=== PATIENT | male | born 1965 | race Caucasian/White ===

== ENCOUNTER 2024-09-17 16:11 | Emergency (ER) | payer OTHER, BC, SELFPAY ==
--- NOTE | ~2024-09-17 | XR_ITS ---
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 No elevation of the anterior or posterior fat pads are identified to suggest a supracondylar fracture . Overlying soft tissues are unremarkable. Bone mineralization is age-appropriate. IMPRESSION: No acute fracture or dislocation. Reviewed, dictated and finalized at location A.
--- NOTE | 2024-09-17 16:12 | ED.UPPEXIN ---
HPI - Extremity Injury (Upper) General Chief Complaint: Extremity Injury, Upper Stated Complaint: R SHOULDER/BEHIND R EAR/L ELBOW PAIN Time Seen by Provider: 09/17/24 16:12 Source: patient Mode of arrival: ambulatory Limitations: no limitations History of Present Illness HPI narrative: Randy is a 59-year-old male patient presenting to the clinic today with complaints of left elbow pain. He reports he hit his elbow on the machinery today while work. Has pain and swelling to the medial elbow. Also reporting some chronic pain to the right lateral neck radiating into the shoulder and back. States that this injury occurred about a year ago and has constantly been bothered him. He had x-rays at the time of the injury and they were negative. He has not followed up with his primary care doctor in regards to this. Related Data Home Medications ?Medication ?Instructions ?Recorded ?Confirmed ?Last Taken ?Type amlodipine 10 mg tablet mg 09/17/24 Unknown History atorvastatin 80 mg tablet mg 09/17/24 Unknown History metformin 500 mg tablet,extended mg PO 09/17/24 Unknown History release 24 hr metoprolol succinate 50 mg mg PO 09/17/24 Unknown History tablet,extended release 24 hr zolpidem 10 mg tablet mg 09/17/24 Unknown History Allergies Allergy/AdvReac Type Severity Reaction Status Date / Time No Known Allergies Allergy Verified 09/17/24 16:36 Review of Systems Review of Systems: Pertinent positives per HPI. Patient denies any fever, chills, rash, headache, visual changes, dizziness, cough, runny nose, sore throat, shortness of breath, chest pain, palpitations, nausea, vomiting, diarrhea, constipation, abdominal pain, or any urinary issues. PMFSH Comments At the time of my signature, I reviewed and agree with the nursing past medical, surgical, social, and family history. There is no relevant family history pertinent to the patient complaint. Exam Narrative: General: Well-developed, well nourished, in no apparent distress Head: Normocephalic, atraumatic. Cardio: Regular rate and rhythm, s1 and s2 normal, no murmur appreciated. Resp: Clear to auscultation bilaterally, no rhonchi, rales, wheezing or rubs. Musculoskeletal: No deformity, tenderness to palpation over the left medial posterior elbow, tender to palpation over the right posterior lateral cervical/trapezius musculature, hand grasp strong and equal, denies cervical radiculopathy, grossly normal range of motion, muscle strength strong and equal, peripheral pulse strong, no edema, no cyanosis, normal gait and station Course Course Emergency Course: Portions of this record may have been created with voice recognition software. Level of Care: Express Care Visit Vital Signs Vital signs: Vital Signs Temperature 37.0 C 09/17/24 16:20 Pulse Rate 70 09/17/24 16:20 Respiratory Rate 16 09/17/24 16:20 Blood Pressure 136/92 H 09/17/24 16:20 Pulse Oximetry 100 09/17/24 16:20 Oxygen Delivery Room Air 09/17/24 16:20 Temperature 37.0 C 09/17/24 16:20 Pulse Rate 70 09/17/24 16:20 Respiratory Rate 16 09/17/24 16:20 Blood Pressure 136/92 H 09/17/24 16:20 Pulse Oximetry 100 09/17/24 16:20 Oxygen Delivery Room Air 09/17/24 16:20 Vital signs reviewed MDM - Extremity Injury (Upper) MDM Narrative Medical decision making narrative: At the time of visit patient is resting comfortably on the exam table. Patient appears to be nontoxic. Diagnostics: X-ray of the left elbow was performed and was negative for any sign of fracture. Plan: I suspect patient has posterior lateral cervical/trapezius muscle strain/left elbow contusion. Supportive measures were discussed with the patient and they voiced understanding discharge instructions and agrees to treatment plan. Return precautions reviewed Differential Diagnosis Differential diagnosis: Likely other (Elbow contusion, elbow fracture, cervical strain, cervical radiculopathy, muscle strain) Imaging Data Radiologist's impression: ITS Impressions Elbow X-Ray 09/17/24 16:45 IMPRESSION: No acute fracture or dislocation. Discharge Plan Discharge Clinical Impression: Posterolateral cervical muscle strain Qualifiers: Encounter type: initial encounter Qualified Code(s): S16.1XXA - Strain of muscle, fascia and tendon at neck level, initial encounter Contusion of elbow, left Qualifiers: Encounter type: initial encounter Qualified Code(s): S50.02XA - Contusion of left elbow, initial encounter Patient Disposition: Home Condition: Stable Instructions: Antibiotic Form, Cervical Strain (ED), Contusion in Adults (ED) Additional Instructions: X-ray of the left and was negative for any sign of fracture or malalignment. Take any prescription medication only as prescribed-Medrol Dosepak and Flexeril Be mindful of sedation precautions given to you if taking a muscle relaxer. May use heat or ice to the affected area Consider massage or chiropractor adjustment if this was discussed with provider May use blue emu, lidocaine patches, or asper cream to affected area- do not apply heat or ice directly over cream- can cause burn. Complete appropriate neck stretching exercises. Rest, ice, and elevate your left elbow Follow up with your PCP in 3-5 days if symptom persist. Patient Language: Latvian Prescriptions: New methylprednisolone [Medrol (Bull)] 4 mg tablets,dose pack See Rx Instructions PO .COMPLEX Qty: 21 0RF Rx Instructions: orally per package directions cyclobenzaprine 10 mg tablet 10 mg PO Q8H PRN (Reason: muscle spasm) 7 Days Qty: 21 0RF No Action atorvastatin 80 mg tablet metoprolol succinate 50 mg tablet extended release 24 hr PO amlodipine 10 mg tablet zolpidem 10 mg tablet metformin 500 mg tablet extended release 24 hr PO Follow-up/Referrals: Elijah,MD Bowen ([place]) [Primary Care Provider] - Time of Disposition: 16:52 Quality NIHSS Nursing Documentation ED NIHSS nursing documentation: reviewed/agree
[2024-09-17 16:20] VITALS: BP 136/92; PULSE 70; RESP 16; TEMP 37; O2SAT 100
== END 2024-09-17 16:56 | disposition home or self-care (01) ==
PROVIDERS: Emergency Provider Nurse Practitioner Family; PCP Internal Medicine
DX: S16.1XXA Strain of muscle, fascia and tendon at neck level, initial encounter (principal); X58.XXXA Exposure to other specified factors, initial encounter; S50.02XA Contusion of left elbow, initial encounter; W22.8XXA Striking against or struck by other objects, initial encounter; Y99.0 Civilian activity done for income or pay; I10 Essential (primary) hypertension; E78.00 Pure hypercholesterolemia, unspecified; R73.03 Prediabetes
CPT/HCPCS: 73080; 99203; G0463